=== PATIENT | male | born 1965 | race Caucasian/White ===

== ENCOUNTER 2017-12-03 14:50 | Emergency (ER) | payer SELFPAY ==
[2017-12-03 14:52] VITALS: BP 113/92; PULSE 108; RESP 18; TEMP 36.6; O2SAT 95; BMI 27.0
--- NOTE | 2017-12-03 15:30 | ED.VISSUMM ---
- ER Visit Summary Date of Service: 12/03/17 Chief Complaint: Nausea vomiting diarrhea History of Present Illness: The patient is a 52 M presenting for evaluation secondary nausea vomiting and diarrhea. Patient reports that early Monday morning he woke up and had a sudden onset of loose watery diarrhea, abdominal cramping, as well as nausea and vomiting. Patient reports that he has been vomiting 2-3 times a day pretty much anytime he eats, and has had up to 8 episodes of loose watery diarrhea. Patient reports that he is having abdominal cramping chills and a cough associated with this. He does endorse also having some rhinorrhea. He endorses having sick contacts. Physical Examination: Vital signs notable for heart rate of 108. Well-nourished male no acute distress. Minimal sinus tenderness to percussion noted. Swollen nasal turbinates. Heart was minimally tachycardic and regular. Lungs are clear. Abdomen was nontender with hyperactive bowel sounds. Remainder of physical otherwise unremarkable. Test Results: None indicated Emergency Department Course and Treatment: Patient presented for evaluation secondary to nausea vomiting and diarrhea. He does appear well-hydrated is only mildly tachycardic. I do not believe that IV is indicated. Patient will be treated with Zofran and Imodium and discharged with a course of the same. Disposition: Discharge Impression: 1. Gastroenteritis This note was generated with [employer] dictation software. It may contain incorrect words, spelling, and punctuation that were not noted in review of the chart prior to signing ED Disposition - Plan for ED Patient: Disposition: Home or Assisted Living Chief Complaint: Nausea/Vomiting/Diarrhea Diagnosis: Gastroenteritis Instructions: ED Gastroenteritis Viral Prescriptions: Loperamide [Imodium] 2 mg PO Q2H PRN PRN #10 cap PRN Reason: Diarrhea Ondansetron [Zofran Odt] 4 mg PO Q8H PRN PRN #10 tab PRN Reason: Nausea Referrals: Care Physician,No Primary [Primary Care Provider] -
--- NOTE | 2017-12-03 15:35 | ED.DCSUM_ITS ---
- ER Visit Summary Date of Service: 12/03/17 Chief Complaint: Nausea vomiting diarrhea History of Present Illness: The patient is a 52 M presenting for evaluation secondary nausea vomiting and diarrhea. Patient reports that early Monday morning he woke up and had a sudden onset of loose watery diarrhea, abdominal cramping, as well as nausea and vomiting. Patient reports that he has been vomiting 2-3 times a day pretty much anytime he eats, and has had up to 8 episodes of loose watery diarrhea. Patient reports that he is having abdominal cramping chills and a cough associated with this. He does endorse also having some rhinorrhea. He endorses having sick contacts. Physical Examination: Vital signs notable for heart rate of 108. Well-nourished male no acute distress. Minimal sinus tenderness to percussion noted. Swollen nasal turbinates. Heart was minimally tachycardic and regular. Lungs are clear. Abdomen was nontender with hyperactive bowel sounds. Remainder of physical otherwise unremarkable. Test Results: None indicated Emergency Department Course and Treatment: Patient presented for evaluation secondary to nausea vomiting and diarrhea. He does appear well-hydrated is only mildly tachycardic. I do not believe that IV is indicated. Patient will be treated with Zofran and Imodium and discharged with a course of the same. Disposition: Discharge Impression: 1. Gastroenteritis This note was generated with [employer] dictation software. It may contain incorrect words, spelling, and punctuation that were not noted in review of the chart pr ior to signing ED Disposition - Plan for ED Patient: Disposition: Home or Assisted Living Chief Complaint: Nausea/Vomiting/Diarrhea Diagnosis: Gastroenteritis Instructions: ED Gastroenteritis Viral Prescriptions: Loperamide [Imodium] 2 mg PO Q2H PRN PRN #10 cap PRN Reason: Diarrhea Ondansetron [Zofran Odt] 4 mg PO Q8H PRN PRN #10 tab PRN Reason: Nausea Referrals: Care Physician,No Primary [Primary Care Provider] -
[2017-12-03] MEDS: Loperamide 2 MG Capsule 4 MG PO (15:42)
[2017-12-03 15:43] VITALS: BP 132/85; PULSE 102; RESP 14; O2SAT 97
[2017-12-03] MEDS: Ondansetron ODT 4 MG Tablet PO (15:43)
== END 2017-12-03 15:45 | disposition home or self-care (01) ==
PROVIDERS: Emergency Provider Emergency Medicine
DX: K52.9 Noninfective gastroenteritis and colitis, unspecified (principal); R05 Cough; J34.89 Other specified disorders of nose and nasal sinuses; Z72.0 Tobacco use
CPT/HCPCS: 99283

== ENCOUNTER 2018-03-28 18:15 | Emergency (ER) | payer SELFPAY ==
[2018-03-28 18:16] VITALS: BP 134/87; PULSE 87; RESP 19; TEMP 37.2; O2SAT 96; BMI 28.0
[2018-03-28] MEDS: 0.9% Normal Saline 1,000 ML 1000 ML IV (19:03)
[2018-03-28] MEDS: Dicyclomine 10 MG Capsule 20 MG PO (19:03)
[2018-03-28] MEDS: Ondansetron 4 MG/2 ML Vial IV (19:03)
[2018-03-28 19:16] LABS: Absolute Lymphocyte Count 2.27 X10^3/ul (0.83-4.51); Absolute Neutrophil Count 3.3 X10^3/uL (2.0-7.7); Basophil# 0.01 X10^3/uL; Basophil% 0.2 % (0-1); Eosinophil# 0.21 X10^3/uL; Eosinophils% 3.4 % (0-5); Hematocrit 43.5 % (40-54); Hemoglobin 14.4 g/dl (13.0-16.5); Lymphocyte # 2.27 X10^3/ul (4.0); Lymphocyte % 36.9 % (19-41); Mean Corp Hgb Conc 33.1 g/gl (32-36); Mean Corpuscular Hgb 32.2 pg (27.0-32.0); Mean Corpuscular Volume 97.3 fL (80-94); Monocyte# 0.35 X10^3/uL; Monocyte% 5.7 % (0-10); Neutrophil # 3.29 X10^3/uL (2.7-7.7); Neutrophil % 53.3 % (47-70); Platelet Count 273 K/mm3 (150-450); RBC Distribution Width CV 12.8 % (11.6-14.6); RBC Distribution Width SD 45.2 fl (35.1-43.9); Red Blood Count 4.47 M/mm3 (4.6-6.2); White Blood Count 6.2 K/mm3 (4.4-11.0)
[2018-03-28 19:17] LABS: POSITIVE COUNT NO; POSITIVE DIFFERENTIAL NO; POSITIVE MORPHOLOGY NO
[2018-03-28 19:29] LABS: AST(SGOT) 20 U/L (15-37); Alanine Aminotransfer ALT/SGPT 31 U/L (16-61); Albumin, Serum 3.2 g/dL (3.2-5.0); Alkaline Phosphatase 66 U/L (45-117); Anion Gap 10 (5-15); BUN 15 mg/dL (7-18); BUN/Creat Ratio 13.4 RATIO (10-20); Calcium,Total 7.9 mg/dL (8.5-10.1); Chloride 110 mmol/L (98-107); Creatinine, Serum 1.12 mg/dL (0.70-1.30); EST Glomerular Filtration Rate 73 mL/min (>60); Est Glom Filt Rate - Afr Amer 89 mL/min (>60); Estimated Creatinine Clearance 78.03 ml/min; Globulin 3.1 g/dL (2.2-4.2); Glucose 105 mg/dL (74-106); Lipase 157 U/L (73-393); Protein, Total 6.3 g/dL (6.4-8.2); Sodium Level 145 mmol/L (136-145)
[2018-03-28 19:42] LABS: Lactic Acid 0.5 mmol/L (0.4-2.0)
--- NOTE | 2018-03-28 20:36 | ED.VISSUMM ---
- ER Visit Summary Date of Service: 03/28/18 Chief Complaint: [Diarrhea and abdominal pain] History of Present Illness: The patient is a 53 M [presents the emergency department 2-day history of diarrhea. Patient states that multiple people at work and had similar issues. Patient describes intermittent abdominal cramping in the upper abdomen. Patient denies any fevers. He denies any vomiting. Patient denies any blood in his stool or black tarry stools. Patient's been having 6-7 episodes of diarrhea per day that has been watery. Patient is not had a bowel movement since this morning however.] Patient denies any recent travel or antibiotic usage. Physical Examination: HEENT-PERRLA, EOMI. Cranial nerves II through XII grossly intact. TMs clear. Mucous membranes moist. No adenopathy. Cardiovascular-regular rate and rhythm without murmur or ectopy Lungs-clear to auscultation, chest wall stable without crepitus or subcu emphysema Abdomen-normoactive bowel sounds, soft, nontender, no rebound or rigidity, no peritoneal signs. Extremities-intact ?4, normal range of motion, normal pulses, atraumatic [] Test Results: [CBC with differential obtained showed a normal white blood cell count. Chemistries were unremarkable. LFTs were normal and lipase was normal.] Emergency Department Course and Treatment: [I ordered stool for enteric pathogens however patient was unable to provide a sample.] Patient was given a dose of Bentyl he had no further abdominal pain or cramping. Treatment Plan: [Patient was given a prescription for Bentyl. Patient is asking to return to work.] Disposition: [Discharged home in stable condition] Impression: [Diarrhea-suspect viral etiology] This note was generated with [employer] dictation software. It may contain incorrect words, spelling, and punctuation that were not noted in review of the chart prior to signing ED Disposition - Plan for ED Patient: Referrals: Care Physician,No Primary [Primary Care Provider] -
--- NOTE | 2018-03-28 20:38 | ED.DEP ---
ED Disposition - Plan for ED Patient: Instructions: ED Gastroenteritis Viral Prescriptions: Dicyclomine HCl [Bentyl] 20 mg PO TIDAC #20 cap Referrals: Care Physician,No Primary [Primary Care Provider] - Rosa Elena Harvey DO [STAFF PHYSICIAN] - 3-5 Days
[2018-03-28 20:46] VITALS: BP 128/78; PULSE 73; RESP 20; O2SAT 97
== END 2018-03-28 20:46 | disposition home or self-care (01) ==
PROVIDERS: Emergency Provider Emergency Medicine
DX: A08.4 Viral intestinal infection, unspecified (principal); R10.10 Upper abdominal pain, unspecified; R19.7 Diarrhea, unspecified; Z72.0 Tobacco use
CPT/HCPCS: 80053; 83605; 83690; 85025; 96361; 96374; 99284; J7030; A4216; J2405

== ENCOUNTER 2018-05-09 20:03 | Emergency (ER) | payer SELFPAY ==
[2018-05-09 20:03] VITALS: BP 132/83; PULSE 96; RESP 18; TEMP 36.8; O2SAT 97; BMI 27.3
--- NOTE | 2018-05-09 20:45 | CT_ITS ---
STUDY: CT BRAIN WITHOUT CONTRAST REASON FOR EXAM: Male, 53 years old. Difficulty hearing RADIATION DOSAGE (If Supplied By Facility): CTDIvol = ( 44.99 ) mGy, DLP = ( 812.98 ) mGycm TECHNIQUE: Transaxial CT imaging of the brain was performed without administration of intravenous contrast material. Individualized dose optimization techniques were used for this CT. COMPARISON: No relevant priors. FINDINGS: Normal soft tissue structures. Normal calvarium. Normal size ventricles and extra-axial spaces for the patient's age. Normal white matter tracts of the cerebral hemispheres. Normal basal ganglia and thalami. Normal brainstem. Normal cerebellum. There is no intracranial hemorrhage. There are no findings of an acute ischemic infarction. Mild paranasal sinus mucosal thickening. CT/Brain/Head without Contrast IMPRESSION: No acute intracranial pathology of the brain. Electronically Signed: Hi Youngblood DO at 21:35 EDT Tel [phone], Service support ,
--- NOTE | 2018-05-09 21:49 | ED.VISSUMM ---
- ER Visit Summary Date of Service: 05/09/18 Chief Complaint: Hearing loss, headache History of Present Illness: The patient is a 53 M reports hearing loss for the past week. No injuries or trauma. Headache since then. Also complains of intermittent dizzy vertigo sensations. 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 He does use Q-tips. No nausea or vomiting. No vision changes. Physical Examination: General: Alert and oriented ?3, no acute distress. Hard of hearing HEENT: Normocephalic, atraumatic. Moist mucosa membranes. TMs were normal. No cerumen impaction. Neck: supple, nontender. Cardiovascular: Regular rate and rhythm, no murmurs Respiratory: Normal breath sounds, symmetric, no distress Abdomen: Soft, nontender, nondistended Extremities: Nontender, no edema, pulses intact ?4 Neuro: no focal neurological deficits. Test Results: CT head negative Emergency Department Course and Treatment: Patient prior complaints of hearing loss and dizzy sensations. Complains of headache. Head CT was negative. No cerumen impaction noted. With hearing loss will give follow-up with ENT for outpatient testing. Will give prescription for Antivert to use for dizziness as needed. Signs and symptoms discussed return. All questions were answered. Treatment Plan: [] Disposition: Discharge Impression: 1. Hearing loss 2. Dizziness 3. Cephalgia This note was generated with [employer] dictation software. It may contain incorrect words, spelling, and punctuation that were not noted in review of the chart prior to signing ED Disposition - Plan for ED Patient: Disposition: Home or Assisted Living Diagnosis: Hearing loss, Dizziness, Cephalgia Instructions: Understanding Hearing Loss, ED Cephalgia Unspecified, ED Dizziness [facility]O Prescriptions: Meclizine HCl [Antivert] 25 mg PO 4X/DAY PRN PRN #20 tablet PRN Reason: Dizziness Referrals: Care Physician,No Primary [Primary Care Provider] - Juanjo Sebastian MD [STAFF PHYSICIAN] - 3-5 Days
--- NOTE | 2018-05-09 21:52 | ED.DCSUM_ITS ---
- ER Visit Summary Date of Service: 05/09/18 Chief Complaint: Hearing loss, headache History of Present Illness: The patient is a 53 M reports hearing loss for the past week. No injuries or trauma. Headache since then. Also complains of intermittent dizzy vertigo sensations. 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 He does use Q-tips. No nausea or vomiting. No vision changes. Physical Examination: General: Alert and oriented ?3, no acute distress. Hard o f hearing HEENT: Normocephalic, atraumatic. Moist mucosa membranes. TMs were normal. No cerumen impaction. Neck: supple, nontender. Cardiovascular: Regular rate and rhythm, no murmurs Respiratory: Normal breath sounds, symmetric, no distress Abdomen: Soft, nontender, nondistended Extremities: Nontender, no edema, pulses intact ?4 Neuro: no focal neurological deficits. Test Results: CT head negative Emergency Department Course and Treatment: Patient prior complaints of hearing loss and dizzy sensations. Complains of headache. Head CT was negative. No cerumen impaction noted. With hearing loss will give follow-up with ENT for outpatient testing. Will give prescription for Antivert to use for dizziness as needed. Signs and symptoms discussed return. All questions were answered. Treatment Plan: [] Disposition: Discharge Impression: 1. Hearing loss 2. Dizziness 3. Cephalgia This note was generated with [employer] dictation software. It may contain incorrect words, spelling, and punctuation that were not noted in review of the chart prior to signing ED Disposition - Plan for ED Patient: Disposition: Home or Assisted Living Diagnosis: Hearing loss, Dizziness, Cephalgia Instructions: Understanding Hearing Loss, ED Cephalgia Unspecified, ED Dizziness UKO Prescriptions: Meclizine HCl [Antivert] 25 mg PO 4X/DAY PRN PRN #20 tablet PRN Reason: Dizziness Referrals: Care Physician,No Primary [Primary Care Provider] - Juanjo Sebastian MD [STAFF PHYSICIAN] - 3-5 Days
== END 2018-05-09 21:57 | disposition home or self-care (01) ==
PROVIDERS: Emergency Provider Emergency Medicine
DX: H91.90 Unspecified hearing loss, unspecified ear (principal); R42 Dizziness and giddiness; R51 Headache
CPT/HCPCS: 70450; 99281

== ENCOUNTER 2018-06-07 20:55 | Emergency (ER) | payer SELFPAY ==
[2018-06-07 20:56] VITALS: BP 155/78; PULSE 99; RESP 16; TEMP 36.3; O2SAT 96; BMI 23.5
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
[2018-06-07 22:08] VITALS: BP 142/60; PULSE 98; RESP 18; O2SAT 96
== END 2018-06-07 22:08 | disposition home or self-care (01) ==
PROVIDERS: Emergency Provider Emergency Medicine
DX: S70.11XA Contusion of right thigh, initial encounter (principal); V03.90XA Pedestrian on foot injured in collision with car, pick-up truck or van, unspecified whether traffic or nontraffic accident, initial encounter; Y93.9 Activity, unspecified; Y92.9 Unspecified place or not applicable; F17.200 Nicotine dependence, unspecified, uncomplicated
CPT/HCPCS: 99282

== ENCOUNTER 2018-10-29 09:55 | Inpatient (IN) | payer MEDICARE, SELFPAY ==
[2018-10-29] VITALS (8 sets, daily range): BP systolic 113–135; BP diastolic 82–98; PULSE 65–94; RESP 16–18; TEMP 36.3–36.7; O2SAT 96–100; BMI 24.7; BMI 25.1
--- NOTE | 2018-10-29 10:20 | ED.RN ---
RT HAND RED, SWOLLEN, AND PAINFUL. LIMITED MOVEMENT.
--- NOTE | 2018-10-29 10:40 | NURSING ---
DR AFSHIN MAJANO
[2018-10-29 10:42] LABS: Absolute Lymphocyte Count 1.44 X10^3/uL (0.83-4.51); Absolute Neutrophil Count 4.7 X10^3/uL (2.0-7.7); Basophil# 0.02 X10^3/uL; Basophil% 0.3 % (0-1); Eosinophil# 0.27 X10^3/uL; Eosinophils% 3.8 % (0-5); Hemoglobin 14.3 g/dL (13.0-16.5); Lymphocyte # 1.44 X10^3/ul (4.0); Lymphocyte % 20.3 % (19-41); Mean Corp Hgb Conc 33.3 g/dL (32-36); Mean Corpuscular Hgb 32.1 pg (27.0-32.0); Mean Corpuscular Volume 96.6 fL (80-94); Monocyte# 0.64 X10^3/uL; NRBC Flagged by Analyzer 0 % (0-5); Neutrophil # 4.69 X10^3/uL (2.7-7.7); Neutrophil % 66.2 % (47-70); Platelet Count 252 K/mm3 (150-450); RBC Distribution Width CV 13.1 % (11.6-14.6); Red Blood Count 4.45 M/mm3 (4.6-6.2); White Blood Count 7.1 K/mm3 (4.4-11.0)
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
[2018-10-29 10:56] LABS: Anion Gap 5 (5-15); BUN 17 mg/dL (7-18); BUN/Creat Ratio 15.7 RATIO (10-20); Calcium,Total 8.7 mg/dL (8.5-10.1); Chloride 104 mmol/L (98-107); Creatinine, Serum 1.08 mg/dL (0.70-1.30); EST Glomerular Filtration Rate 76 mL/min (>60); Est Glom Filt Rate - Afr Amer 92 mL/min (>60); Estimated Creatinine Clearance 80.92 ml/min; Glucose 90 mg/dL (74-106); Potassium 4.6 mmol/L (3.5-5.1); Sodium Level 136 mmol/L (136-145)
[2018-10-29] MEDS: 0.9% Normal Saline 1,000 ML 250 ML IV (11:05)
[2018-10-29] MEDS: Morphine 4 MG/ML Syringe IV ×2 (11:08→12:04)
[2018-10-29] MEDS: Ondansetron 4 MG/2 ML Vial IV (11:08)
--- NOTE | 2018-10-29 11:15 | NURSING ---
DR PEPE FOR DR JOSHUA
--- NOTE | 2018-10-29 11:19 | NURSING ---
DR MISA MAJANO
--- NOTE | 2018-10-29 11:23 | RAD_ITS ---
STUDY: X-RAY - RIGHT HAND, ATTENTION RIGHT THUMB. REASON FOR EXAM: Male, 53 years old. Injury to the thumb. TECHNIQUE: 3 view(s) of the finger were obtained. COMPARISON: None. FINDINGS: Normal metacarpal head. There is mild degenerative arthrosis of the metacarpophalangeal joint. Normal proximal phalanx. N ormal distal phalanx. Normal proximal interphalangeal joint. Normal distal interphalangeal joint. RAD/Finger(s) Min 2 Views IMPRESSION: No acute abnormality is seen. Electronically Signed: Billy Gonzalez, at 12:20 EDT , Service support ,
--- NOTE | 2018-10-29 11:27 | NURSING ---
DR BYNUM FOR DR JOSHUA
--- NOTE | 2018-10-29 11:43 | NURSING ---
MED SURG SLABY FLEXOR TENOSYNOVITIS RT THUMB
--- NOTE | 2018-10-29 13:01 | HP.PCM_ITS ---
History of Present Illness Date of Admission: 10/29/18 Chief Complaint: Fish hook injury to volar aspect right thumb with infection and tenosynovitis. Patient is a 53-year-old hcuwp-vamg-myyzhqoj male who presents with pain, swelling and discoloration of his right thumb status post puncture wound from a fish hook yesterday. The puncture wound is near the IP joint of the right thumb. He reports increasing redness and pain and swelling since yesterday. He denies fever, chills or night sweats. He came to the ED and was started on IV Clindamycin. X-ray showed no fracture and no foreign body. It was recommended for the patient to be admitted for continued IV antibiotics and urgent operative intervention for incision and drainage and excisional debridement of his worsening infection right thumb. Patient is right hand dominant. Past Medical History Past Medical History (Chronic Problems): Chronic Problems Smoker (Chronic) Allergies No Known Allergies Allergy (Verified 10/29/18 09:56) Home Medications: Ambulatory Orders Medication Instructions Recorded NK 06/07/18 Surgical History: no surgical history Lives: Alone Smoking Status: Current every day smoker Alcohol: None Drugs: None Review of Systems Constitutional: Denies: Chills, Fever Eyes: Denies: Pain HEENT: Denies: Nasal Congestion, Sore Throat Cardiovascular: Denies: Chest Pain Respiratory: Reports: Cough, Shortness of Breath, - - patient is a smoker. Gastrointestinal: Denies: Constipation, Diarrhea, Nausea, Vomiting Genitourinary: Denies: Frequency, Hematuria Musculoskeletal: Reports: Hand Pain - right thumb pain with increasing redness and swelling and pain after a fish hook injury.. Denies: Back Pain, Leg Pain, Neck Pain Skin: Reports: Wounds - puncture wound volar surface right thumb at IP joint. Neurological: Denies: Headaches Psychiatric: Denies: Anxiety, Depression Endocrine: Denies: Polydipsia, Polyuria Hematologic/ Lymphatic: Denies: Easy Bruising, Hx of blood clot VTE Information - Inpt Only VTE Present on Admission: No VTE Mechan Device Prophylaxis: SCD's VTE Pharm Prophylaxis ordered?: No Patient Problems: Active and Suspected Problems Abscess of right thumb (Acute) Puncture wound of right thumb (Acute) Fish hook injury of right thumb (Acute) Flexor tenosynovitis of thumb (Acute) - Physical Exam General: Alert, Oriented x3 HEENT: PERRLA, EOMI Oral: Moist Mucosa Neck: Supple Lungs: Clear to auscultation Cardiovascular: Regular rate Abdomen: Soft, Non-Distended Extremities: No clubbing, No cyanosis, Edema - mild e4ema right thumb., Peripheral Pulses Normal, Tenderness - right thumb., - - patient is right hand dominant. Skin: Ulcer/ Wound - puncture wound volar surface right thumb at IP joint. Surrounding redness and swelling and tenderness. Lymphatic: - - no axillary adenopathy. Neurological: Cranial nerves II-XII grossly intact Psych/Mental Status: Normal Affect, Appropriate Vital Signs Temp Pulse Resp BP Pulse Ox 98.1 F 77 16 134/84 H 99 10/29/18 12:45 10/29/18 12:45 10/29/18 12:45 10/29/18 12:45 10/29/18 12:45 Oxygen Delivery Method Room Air Weight: 170 lb 3.15 oz Body Mass Index (BMI) 25.1 Intake and Output for Last 24 Hours 10/27/18 10/28/18 10/29/18 23:59 23:59 23:59 Intake Total 54 / 54 Balance 54 / 54 Laboratory Tests Past 24 Hrs 10/29/18 10/29/18 10:35 10:35 WBC 7.1 RBC 4.45 L Hgb 14.3 Hct 43.0 MCV 96.6 H MCH 32.1 H MCHC 33.3 RDW Std Deviation 47.0 H RDW Coeff of Desiree 13.1 Plt Count 252 MPV 10.0 Immature Gran % (Auto) 0.400 Neut % (Auto) 66.2 Lymph % (Auto) 20.3 Thurston % (Auto) 9.0 Eos % (Auto) 3.8 Baso % (Auto) 0.3 Absolute Neuts (auto) 4.7 Absolute Lymphs (auto) 1.44 Nucleated RBC % 0 Sodium 136 Potassium 4.6 Chloride 104 Carbon Dioxide 27.0 Anion Gap 5 BUN 17 Creatinine 1.08 Estim Creat Clear Calc 80.92 Est GFR (MDRD) Af Amer 92 Est GFR (MDRD) Non-Af 76 BUN/Creatinine Ratio 15.7 Glucose 90 Calcium 8.7 Diagnostic Data Finger X-Ray 10/29/18 11:23 IMPRESSION: No acute abnormality is seen. Electronically Signed: Billy Gonzalez, at 12:20 EDT , Service support , Assessment/Plan All Active Problems Abscess of right thumb (Acute) Puncture wound of right thumb (Acute) Fish hook injury of right thumb (Acute) No significant past medical history (Acute) Flexor tenosynovitis of thumb (Acute) 1. Puncture wound infection volar surface right thumb at IP joint. 2. Flexor tenosynovitis. 3. Fish hook injury. 4. Smoker. X-ray reviewed. No fracture was seen. No foreign body seen. Due to the mechanism of injury with a fish hook from dirty pond water, recommend urgent operative intervention today to minimize further extension of the infection and the risk of tissue necrosis. Surgery will be done under general anesthesia and tourniquet control. His symptoms have dramatically worsened in the last 24 hours. Patient will need incision and drainage and excisional debridement with extension of the area of infection both proximally and distally in a zig zag fashion. Anticipate involvement of the underlying flexor tendon sheath that will necessitate incision and drainage of the tendon sheath. The wounds will be left open and packed with Betadine gauze today. Tomorrow will start Aquacel Silver dressing changes daily. A thumb spica splint will be applied in the OR. He will be discharged in a day or two once he is tolerating po analgesia with the dressing changes. Will set him up with OT after discharge for a silastic splint and range of motion exercises, strengthening, and edema management. Patient was informed of the risks and complications of the procedure including alternatives to surgery. These were discussed with the patient personally. Patient voices understanding and wishes to proceed. Some of the risks and complications that were discussed included but were not i nclusive of failure to diagnose including symptom relief, pain, infection, numbness, stiffness, loss of digit, RSD (CRPS), need for further surgery, contracture, and wound healing problems. Encouraged patient to stop smoking as it may have deleterious effects on wound healing. Code Visit Inpatient E&M: 92645 Init Hosp L3 - -57 Modifier ICD-10 - S69.91xA, S61.031A, L02.511, M65.9, F17.200
--- NOTE | 2018-10-29 13:19 | NURSING ---
report given to jacque ODEN in ac
[2018-10-29] MEDS: Lactated Ringers 1,000 ML 100 ML IV (13:49)
--- NOTE | 2018-10-29 14:15 | TISS_PTH ---
PATIENT: DIDIER TRAN LOC: [facility] U#:[id number] AGE/SX: 53/M ROOM: TX325 RE10/29/[address]: Dr. Ellis Tejada MD : [id number] BED: 1 DIS: 10/31/2018 SPEC #: [id number] RECD: 10/29/18 15:52 STATUS: EDGARDO RETerry #: [id number] SULEIMAN: 10/29/18 14:[address]: Ellis Tejada DEPT: SURGICAL PATHOLOGY RECD BY: Nabeel Carter ENTERED: 10/30/18 13:23 SP TYPE: Tissue Bx OTHR DR: Ally Primary Care Phys Tissues: Thumb, NOS Procedures: Special Stain Group I Surgery Specimen Level IV GMS Stain (control) HEADER OPERATION: Incision and drainage thumb abscess PRE-OP DIAGNOSIS: Flexor tenosynovitis of thumb TISSUE SUBMITTED: Right thumb infection MICROSCOPIC DIAGNOSIS Skin and soft tissue, right thumb, excision: Acute inflammation consistent with abscess formation. Hyperkeratosis and reactive acanthosis of skin. Negative for fungal organisms. See comment. AM:monica 10/31/18 COMMENT GMS stain with matched control supports the above diagnosis. MICROSCOPIC DESCRIPTION Slides are reviewed. GROSS DESCRIPTION Received in fixative is one container labeled with the patient's name and designated thumb infection. The specimen consists of three irregular fragments of yellow-saenz soft tissue ranging in size from 0.7 to 1.2 cm. The largest fragment contains a fragment of unremarkable skin measuring 1.1 x 0.7 cm. The largest fragment contains a fragment of unremarkable skin measuring 1.1 x 0.7 cm. The largest fragment is inked, bisected and totally submitted along with the smaller fragments in one cassette. / AM:monica 10/30/18 TC:2 CPT: 16976, 29760
[2018-10-29] MEDS: Piperacil/Tazobactam 4.5 GM in NS100 MBP IV (14:46)
[2018-10-29] MEDS: Vancomycin IV 1,000 MG/200 ML BAG 200 MG IV (14:56)
--- NOTE | 2018-10-29 15:54 | PCM.OPRPT ---
Report of Operation Date of Procedure: 10/29/18 Pre-Operative Diagnosis: 1. Puncture wound infection volar surface right thumb at IP joint. 2. Flexor tenosynovitis. 3. Fish hook injury. 4. Smoker. Post-Operative Diagnosis: Same. Surgery/Procedure Performed:: 1. Surgical preparation right thumb with incision and drainage and excisional debridement necrotizing infection abscess. 2. Incision and drainage tendon sheath for flexor tenosynovitis. Description of Surgical Findings:: Patient is a 53-year-old tstwu-khjc-zqwuagsa male who presents with pain, swelling and discoloration of his right thumb status post puncture wound from a fish hook yesterday. The puncture wound is near the IP joint of the right thumb. He reports increasing redness and pain and swelling since yesterday. He denies fever, chills or night sweats. He came to the ED and was started on IV Clindamycin. X-ray showed no fracture and no foreign body. It was recommended for the patient to be admitted for continued IV antibiotics and urgent operative intervention for incision and drainage and excisional debridement of his worsening infection right thumb. His antibiotics were broadened to Vancomycin and Zosyn. Patient was informed of the risks and complications of the procedure including alternatives to surgery. These were discussed with the patient personally. Patient voices understanding and wishes to proceed. Some of the risks and complications that were discussed included but were not inclusive of failure to diagnose including symptom relief, pain, infection, numbness, stiffness, loss of digit, RSD (CRPS), need for further surgery, contracture, and wound healing problems. Encouraged patient to stop smoking as it may have deleterious effects on wound healing. Total tourniquet time - 52 minutes. Size of defect volar surface right thumb - 1.5 x 1 cm. Length of defect volar surface right thumb extending onto thenar eminence - 6.5 cm (3 separate wounds measuring from proximal to distal - 2 cm, 3 cm, and 1.5 cm. tactical deception plans officer: None Type of Anesthesia:: General Specimen's removed: 1. Right thumb infection tissue to Pathology and Microbiology. 2. MRSA Wound DNA by PCR. Drains: None. Estimated Blood Loss (mL): 5 ml. Description of Procedure: Patient was taken to OR in supine position and was placed under general anesthesia. The right hand was prepped and draped in the usual fashion. SCD's were placed for DVT prophylaxis. Perioperative antibiotics were given intravenously. Using xylocaine with epinephrine, the right thumb was infiltrated with a digital metacarpal block for postoperative pain relief. After waiting 5 minutes for the anesthetic to take effect, the right hand was elevated and squeezed manually with my hands. I didn't want to use an Esmarch bandage due to the concern of spreading the infection. An initial incision and drainage was made in a circular fashion around the area of the puncture wound of the fish hook. Some pus was seen in the subcutaneous tissue. A lot of fat necrosis was present extending to the flexor tendon sheath. I then made proximal and distal incisions in a zig zag fashion for exposure to evaluate the full extent of the infection. The skin flaps were elevated at the level of the tendon sheath. The area was quite swollen. Care was taken to identify the radial digital nerve and ulnar digital nerve to the right thumb, and the nerves were preserved. When I reached the flexor tendon sheath, it was quite inflamed and tense. No pus was seen in the tendon sheath. A lot of inflammatory exudate was present. Incision was made distally at the IP joint and proximally at the crease to allow exposure to the flexor tendon. An IV catheter was placed in the flexor tendon sheath both proximally and distally and copiously irrigated with saline until the drainage was clear without any further evidence of exudate. I also dissected onto the thenar eminence to evaluate the muscles. Both the abductor pollicis brevis and the flexor pollicis brevis were soft and viable without evidence of compartment syndrome or muscle compromise. The palmar sensory branch of the median nerve was seen and preserved. After irrigation of the flexor tendon sheath, I also irrigated the subcutaneous area with saline. About 850 ml of saline was used for irrigation. Some of the tissue that was excised and debrided was sent to Pathology for analysis and to Microbiology for culture. A positive culture will necessitate antibiotic therapy. MRSA Wound DNA by PCR was also done. I then loosely closed the zigs and the zags with 5-0 Nylon vertical mattress interrupted sutures. There was the central wound at the the level of the IP joint where the fish hook injury occurred and it measures 1.5 x 1 cm. The distal wound measured 1.5 cm in length. There were two proximal wounds measuring 3 cm and 2 cm respectively. I dressed the wounds with Mepitel nonadherent dressing and Betadine gauze followed by 4x4 gauze and Kerlix gauze followed by a plaster thumb spica splint followed by a compression jorge luis wrap. Prior to dressing the wounds, the tourniquet was released after 52 minutes. Hemostasis was obtained with electrocautery and compression. Patient tolerated the procedure well and was sent to PACU in satisfactory condition. Patient will be sent upstairs for continued postop care. Anticipate the need for IV analgesia for the first dressing change. Will change to a Silver dressing tomorrow. Will discharge him home when tolerating po analgesia with the dressing changes. After discharge, will set him up with OT for a silastic splint and range of motion exercises, strengthening, and edema management. He will keep his right hand elevated during the initial postoperative period. Sutures will be removed in 2-3 weeks. Grafts/Implants Used: None. - Complications None. - Admit VTE Documentation VTE Present on Admission: No VTE Mechan Device Prophylaxis: SCD's VTE Pharm Prophylaxis ordered?: No Code Visit Surgery Charges CPT - 89204 ICD-10 - S61.031A, S69.91xA, L02.511, M65.9, F17.200 82142 L02.511, S69.91xA, S61.031A, M65.9, F17.200 80616 M65.9, S69.91xA, L02.511, S61.031A, F17.200
--- NOTE | 2018-10-29 16:41 | PCM.RX.CS ---
Consult Pharmacy has been consulted to manage selected antiobiotic: Vancomycin Type of Consult: New start Suspected Infection: Skin/Soft tissue Prior Doses of Antibiotics Received/Current Regimen: Vancomycin 1000mg IV x1 pre-op Labs: Sodium 136 mmol/L (136-145) 10/29/18 10:35 Potassium 4.6 mmol/L (3.5-5.1) 10/29/18 10:35 Chloride 104 mmol/L (98-107) 10/29/18 10:35 Carbon Dioxide 27.0 mmol/L (21.0-32.0) 10/29/18 10:35 Anion Gap 5 (5-15) 10/29/18 10:35 BUN 17 mg/dL (7-18) 10/29/18 10:35 Creatinine 1.08 mg/dL (0.70-1.30) 10/29/18 10:35 Est GFR (MDRD) Af Amer 92 mL/min (>60) 10/29/18 10:35 Est GFR (MDRD) Non-Af 76 mL/min (>60) 10/29/18 10:35 BUN/Creatinine Ratio 15.7 RATIO (10-20) 10/29/18 10:35 Glucose 90 mg/dL (74-106) 10/29/18 10:35 Weight used for dosin kg Estimated Creatinine Clearance: 81ml/min Goal Trough: 10-15 mcg/mL Pharmacy Plan for Drug Dosing: Pt received a 1000mg dose of Vancomycin pre-op on 10/29/18 at 1456. Ordered goal trough for the pt is moderate or 10-15. Initial recommendation is for the pt to receive Vancomycin 1000mg IV q12h, starting 12h after the pre-op dose. Initial recommendation dose was based off of weight and crcl. Trough will be checked 10/31/18 at 0230. Pharmacy Service will continue to monitor and adjust dosing as required. Follow-Up Labs: Trough Vancomycin - 10/31/18 at 0230
[2018-10-29] MEDS: HYDROmorphone 1 MG/ML Syringe IV (17:02)
[2018-10-29 17:38] LABS: M R Staph aureus DNA By PCR Negative (Negative); Probe Check PASS; Specimen Processing Control PASS; Staph aureus DNA By PCR NEGATIVE (Negative)
[2018-10-29] MEDS: Gabapentin 300 MG Capsule PO (18:13)
--- NOTE | 2018-10-29 18:40 | NURSING ---
right hand is warm, cap refill wnl, pt able to move fingers/thumb is splinted along with hard splint on underside of arm from below elbow through thumb
[2018-10-29] MEDS: HYDROmorphone 2 MG TABLET PO ×2 (18:44→21:52)
[2018-10-29] MEDS: Docusate Sodium 100 MG Capsule PO (21:51)
[2018-10-30] MEDS: Ondansetron 4 MG/2 ML Vial IV ×2 (01:00→08:26)
[2018-10-30] MEDS: 0.9% NaCl IVPB Med Flush (250 mL) 15 ML IV (01:00)
[2018-10-30] MEDS: Lactated Ringers 1,000 ML 100 ML IV (01:02)
[2018-10-30 02:14] VITALS: BP 136/88; PULSE 72; RESP 16; TEMP 36.7; O2SAT 97
[2018-10-30] MEDS: Vancomycin IV 1,000 MG/200 ML BAG 200 MG IV ×2 (02:57→17:10)
[2018-10-30] MEDS: HYDROmorphone 1 MG/ML Syringe IV ×2 (06:09→12:41)
[2018-10-30 06:22] LABS: Hematocrit 38.6 % (40-54); Hemoglobin 12.7 g/dL (13.0-16.5); Mean Corp Hgb Conc 32.9 g/dL (32-36); Mean Corpuscular Hgb 32.2 pg (27.0-32.0); Mean Corpuscular Volume 97.7 fL (80-94); Mean Platelet Vol. 10.1 fl (6.2-12.0); Platelet Count 225 K/mm3 (150-450); RBC Distribution Width CV 13.1 % (11.6-14.6); RBC Distribution Width SD 47.2 fl (35.1-43.9); Red Blood Count 3.95 M/mm3 (4.6-6.2); White Blood Count 5.2 K/mm3 (4.4-11.0)
[2018-10-30 06:24] LABS: Erythrocyte Sedimentation Rate 18 mm/hr (0-20)
[2018-10-30 06:40] LABS: ALB/GLOB Ratio 0.9 RATIO (0.9-2.4); AST(SGOT) 28 U/L (15-37); Alanine Aminotransfer ALT/SGPT 32 U/L (16-61); Albumin, Serum 2.8 g/dL (3.2-5.0); Alkaline Phosphatase 50 U/L (45-117); Anion Gap 7 (5-15); BUN 11 mg/dL (7-18); BUN/Creat Ratio 10.3 RATIO (10-20); CRP 8.78 mg/L (0.0-3.0); Calcium,Total 7.7 mg/dL (8.5-10.1); Chloride 105 mmol/L (98-107); Creatinine, Serum 1.07 mg/dL (0.70-1.30); EST Glomerular Filtration Rate 77 mL/min (>60); Est Glom Filt Rate - Afr Amer 93 mL/min (>60); Estimated Creatinine Clearance 81.68 ml/min; Globulin 3.2 g/dL (2.2-4.2); Glucose 123 mg/dL (74-106); Potassium 4.2 mmol/L (3.5-5.1); Sodium Level 138 mmol/L (136-145)
[2018-10-30] MEDS: Gabapentin 300 MG Capsule PO ×2 (08:15→17:10)
[2018-10-30 08:29] VITALS: BP 127/96; PULSE 72; RESP 18; TEMP 36.7; O2SAT 95
[2018-10-30] MEDS: 0.9% NaCl Peripheral Flush Adult/Peds IV ×3 (08:29→13:58)
--- NOTE | 2018-10-30 10:15 | CASEMGMT ---
CECILLE YOUNGER Face to Face with patient for initial transition planning/care coordination assessment. RN AREN introduced self and role at [facility]. Patient lying in bed, alert and oriented. Patient willing to participate in assessment and is able to answer all questions appropriately. Care providers, pharmacy, and demographics verified. Patient wishes to discharge home, with possible HHC. RN AREN discussed need for family or friend to learn dressing changes as HHC will not come everyday. Patient is listed as self pay but patient states he has [employer]. JC GregoryRosina Parr updated regarding self pay status. Patient states he has no further needs or concerns at this time. CM to follow for discharge planning needs that may arise. PCP: None, CECILLE YOUNGER to provide list of PCP for patient to establish with. Specialists: [facility] Preferred Pharmacy: [facility] Insurance: Self pay, patient states he has [employer] but does not have cards Prescription Benefit: Living Will/HPOA: none LNOK: Friend ED Living Arrangements: Patient lives with friend in single story house, patient is independent Transportation: Friends DME/HHC: Denies any DME or HHC Disposition Plan: Patient to discharge home with support of friends and follow-up plans in place. Will monitor for need for HHC pending insurance verification. Krystyna CERRATO, RN, CM
--- NOTE | 2018-10-30 11:32 | CASEMGMT ---
Social Work Pt is listed as self pay. PFS documenting pt does not have Medicaid. JC met with pt and inquired about medical insurance. Pt very insistent that he has caresource. JC called Alicia Reyes at [facility] who states pt does not have coverage. Pt applied in August but failed to provide needed information and case was closed. SW informed pt of this and pt does not believe SW, insisting he does have caresource. JC placed call to Emeli at [facility]. Emeli checked system and states pt does not have [employer]. Per Emeli, Pt had [place] Medicaid but last day of coverage was 12/06/2005. No record of ever having coverage with [facility]. JC attempted to see pt multiple times and pt receiving care. JC will follow up. ASHLEY Cerna
--- NOTE | 2018-10-30 13:07 | PCM.PN.SRG ---
Patient Problems: Active and Suspected Problems Abscess of right thumb (Acute) Puncture wound of right thumb (Acute) Fish hook injury of right thumb (Acute) Flexor tenosynovitis of thumb (Acute) Subjective: Postop #1 Patient has complaints of wound pain. Dressing change with aquacel silver was difficult today secondary to increased pain. - Physical Exam General: Alert, Oriented x3 HEENT: PERRLA, EOMI Oral: Moist Mucosa Neck: Supple Abdomen: Soft, Non-Distended Extremities: Edema - mild edema right hand., Peripheral Pulses Normal Skin: Ulcer/ Wound - right thumb wound is stable. No further evidence of infection noted. Swelling slowly resolving. Redness is less. Tenderness little better. Silver dressing change was painful and needed IV analgesia. Lymphatic: - - no axillary adenopathy. Neurological: Cranial nerves II-XII grossly intact Psych/Mental Status: Normal Affect, Appropriate Vital Signs Temp Pulse Resp BP Pulse Ox 98.0 F 72 18 127/96 H 95 10/30/18 08:29 10/30/18 08:29 10/30/18 08:29 10/30/18 08:29 10/30/18 08:29 Oxygen Delivery Method Room Air Weight: 170 lb 3.15 oz Body Mass Index (BMI) 25.1 Intake and Output for Last 24 Hours 10/28/18 10/29/18 10/30/18 23:59 23:59 23:59 Intake Total 2954 / 2954 883.59 / 883.59 Balance 2954 / 2954 883.59 / 883.59 Microbiology Past 72 Hours 10/29/18 15:56 Gram Stain - Final Wound - Right Hand Wound Culture - Preliminary Gram negative lucero Laboratory Tests Past 24 Hrs 10/29/18 10/30/18 10/30/18 15:56 06:06 06:06 WBC 5.2 RBC 3.95 L Hgb 12.7 L Hct 38.6 L MCV 97.7 H MCH 32.2 H MCHC 32.9 RDW Std Deviation 47.2 H RDW Coeff of Desiree 13.1 Plt Count 225 MPV 10.1 ESR 18 Sodium 138 Potassium 4.2 Chloride 105 Carbon Dioxide 26.0 Anion Gap 7 BUN 11 Creatinine 1.07 Estim Creat Clear Calc 81.68 Est GFR (MDRD) Af Amer 93 Est GFR (MDRD) Non-Af 77 BUN/Creatinine Ratio 10.3 Glucose 123 H Calcium 7.7 L Total Bilirubin 0.40 AST 28 ALT 32 Alkaline Phosphatase 50 C-React Prot Ext Range 8.78 H Total Protein 6.0 L Albumin 2.8 L Globulin 3.2 Albumin/Globulin Ratio 0.9 S.aureus Protein A PCR NEGATIVE MRSA (PCR) Negative Medical Necessity - Tobacco Use Smoking Status: Current every day smoker Assessment/Plan All Active Problems Abscess of right thumb (Acute) Puncture wound of right thumb (Acute) Fish hook injury of right thumb (Acute) No significant past medical history (Acute) Flexor tenosynovitis of thumb (Acute) 1. Puncture wound infection volar surface right thumb at IP joint. 2. Flexor tenosynovitis. 3. Fish hook injury. 4. Smoker. 5. s/p surgical preparation right thumb with incision and drainage and excisional debridement necrotizing infection abscess and incision and drainage tendon sheath for flexor tenosynovitis. Wounds are stable. Less redness seen. Swelling slowly resolving. No further evidence of infection. Silver dressing changes done today with some pain that needed IV analgesia. Operative culture thus far shows Gram negative lucero. Continue IV Vancomycin and Zosyn. MRSA Wound DNA by PCR was negative. Encourage nutritional supplementation with protein to help with the healing process. Continue thumb spica splint and hand elevation. Will discharge home when tolerating po analgesia. Until family feels comfortable with dressing changes, will have him come to the office 3 times per week for Silver dressing changes. After discharge will followup with OT for a silastic splint and range of motion exercises, strengthening, and edema management. Encouraged patient to stop smoking as it may have deleterious effects on wound healing.
[2018-10-30 13:15] VITALS: BP 134/94; PULSE 68; RESP 16; TEMP 37; O2SAT 98
--- NOTE | 2018-10-30 13:38 | CASEMGMT ---
Social Work Note SW attempted to speak with pt regarding self-pay and to follow up from SW previous conversation with pt. Pt soundly sleeping and didn't awake when this worker entered the room. SW will follow up with pt as time allows. Krystyna Parr LACE WEAVER, GENERAL PEDIATRICIAN
[2018-10-30] MEDS: 0.9% Normal Saline 1,000 ML 100 ML IV (13:56)
--- NOTE | 2018-10-30 14:00 | NURSING ---
wound photo: right thumb
[2018-10-30] MEDS: diazePAM 5 MG Tablet PO (14:06)
[2018-10-30] MEDS: Docusate Sodium 100 MG Capsule PO ×2 (17:10→22:20)
--- NOTE | 2018-10-30 17:37 | CHAPLAIN ---
Type of Pastoral Visit _x__ Initial Visit ___ Follow-up Visit ___ On-call Visit ___ General Patient Visit ___ Spiritual Assessment ___ Family Conference ___ Bereavement ___ Rapid Response ___ Code Blue ___ Other (describe below) Pastoral Care Referral From _x__ Patient ___ Family ___ Nurse ___ Physician ___ Men'S Golf Coach ___ Aviculturist ___ Other (describe below) Sacrament/Intervention _x__ Active listening ___ Anointing ___ Denominational ___ Bereavement ___ Communion _x__ Ermelinda exploration ___ _x__ Life review _x__ Prayer ___ Reconciliation ___ Sacrament of Sick _x__ Supportive presence ___ Wedding ___ Other (describe below) Pastoral Comments patient requests spiritual care and prayer along with some inspirational reading material; pt is talkative about his life and some concerns about his spiritual and family life; pt states he forgot to bring his medallion of favorite saint and requests something to hold while he is in hospital; a new taoism object retrieved and given to patient as requested; pt requests more visits of banquet server during his admission
[2018-10-30 20:27] VITALS: BP 149/104; PULSE 86; RESP 16; TEMP 36.8; O2SAT 99
[2018-10-31] MEDS: 0.9% Normal Saline 1,000 ML 100 ML IV ×2 (01:38→12:00)
[2018-10-31 02:27] LABS: Hematocrit 39.7 % (40-54); Hemoglobin 13.2 g/dL (13.0-16.5); Mean Corp Hgb Conc 33.2 g/dL (32-36); Mean Corpuscular Hgb 32.1 pg (27.0-32.0); Mean Corpuscular Volume 96.6 fL (80-94); Platelet Count 231 K/mm3 (150-450); RBC Distribution Width CV 12.8 % (11.6-14.6); Red Blood Count 4.11 M/mm3 (4.6-6.2); White Blood Count 5.7 K/mm3 (4.4-11.0)
[2018-10-31 02:48] LABS: Vancomycin, Trough Level 14.6 ug/mL (5.0-15.0)
[2018-10-31] MEDS: Vancomycin IV 1,000 MG/200 ML BAG 200 MG IV (03:10)
[2018-10-31 03:15] VITALS: BP 144/88; PULSE 83; RESP 18; TEMP 37.1; O2SAT 97
--- NOTE | 2018-10-31 03:26 | PCM.RX.CS ---
Consult Pharmacy has been consulted to manage selected antiobiotic: Vancomycin Type of Consult: Follow-up Suspected Infection: Skin/Soft tissue Prior Doses of Antibiotics Received/Current Regimen: Medications Vancomycin HCl (Vancomycin) 1,000 mg in 200 mls @ 200 mls/hr IV Q12H VICENTE Last Admin: 10/31/18 03:10 Dose: 200 mls/hr Labs: Vancomycin Trough 14.6 ug/mL (5.0-15.0) 10/31/18 02:15 Microbiology: Microbiology 10/29/18 15:56 Wound - Right Hand Gram Stain - Final 10/29/18 15:56 Wound - Right Hand Wound Culture - Preliminary Gram negative lucero Weight used for dosin kg Estimated Creatinine Clearance: 82 Goal Trough: 10-15 mcg/mL Pharmacy Plan for Drug Dosing: Vancomycin trough level of 14.6 was received, within the target range of 10-15. Due to the previous dose being given late the trough represented only a roughly 9 hour level, so will re-draw a trough in 4 doses to re-check. Pharmacy Service will continue to monitor and adjust dosing as required. Follow-Up Labs: Trough Vancomycin Labs to be done on [date and time ordered]: 11/01/18 @9712
[2018-10-31] MEDS: HYDROmorphone 2 MG TABLET PO ×2 (03:36→11:09)
[2018-10-31 04:12] LABS: Anion Gap 7 (5-15); BUN 12 mg/dL (7-18); BUN/Creat Ratio 12.4 RATIO (10-20); Chloride 108 mmol/L (98-107); Creatinine, Serum 0.96 mg/dL (0.70-1.30); EST Glomerular Filtration Rate 87 mL/min (>60); Est Glom Filt Rate - Afr Amer 105 mL/min (>60); Estimated Creatinine Clearance 91.03 ml/min; Glucose 133 mg/dL (74-106); Potassium 4.9 mmol/L (3.5-5.1); Prealbumin 15.2 mg/dL (20.0-40.0); Sodium Level 139 mmol/L (136-145)
[2018-10-31 08:10] VITALS: BP 136/82; PULSE 87; RESP 16; TEMP 37; O2SAT 95
[2018-10-31] MEDS: Gabapentin 300 MG Capsule PO (08:19)
[2018-10-31] MEDS: Docusate Sodium 100 MG Capsule PO (08:20)
[2018-10-31] MEDS: diazePAM 5 MG Tablet PO (10:20)
[2018-10-31] MEDS: HYDROmorphone 0.5 MG/0.5 ML SYRINGE IV (12:00)
--- NOTE | 2018-10-31 12:54 | CASEMGMT ---
Addendum entered by Ro Leslie 10/31/18 13:11: SW spoke w/pt, let him know that he does have Medicare part A, which will cover the hospital stay. SW explained to pt that he may not have prescription coverage however, and he does not have coverage for doctor visits. Pt states understanding of this. SW encouraged pt to call Medicaid to see if he may qualify for it and then he may be able to get doctor visit coverage and medication coverage. SW gave pt a Medicaid application with the phone number to call to apply for Medicaid. Pt states understanding. TIMMY Campoverde Original Note: SW spoke w/pt in the room in regard to pt's insurance. SW explained to pt that the SW called and pt's [facility] Medicaid is not active. Pt states he does not have Medicaid, he had Medicare, states he got it through the Social Security Board when he was diagnosed with hepatitis C. Pt states is no longer on disability but still has Medicare. Pt states it also has covered his prescriptions, and asked how that could be if he does not have insurance. SW inquired the last time he got a prescription covered, he states a year or two ago. SW explained will call our financial dept and have them check for Medicare. SW spoke w/our financial dept, spoke w/Kelsie. She found that pt does have Medicare, part A only. She will find the numbers and put them into the computer system. SW will let pt know, he is in with the physician at present. TIMMY Campoverde
--- NOTE | 2018-10-31 14:10 | PN.SURG_ITS ---
Subjective: Postop #2 Patient states his pain is more tolerable. Tolerated the Silver dressing change reasonably well. - Physical Exam General: Alert, Oriented x3 HEENT: PERRLA, EOMI Oral: Moist Mucosa Neck: Supple Abdomen: Soft, Non-Distended Extremities: Edema - mild edema right hand., Peripheral Pulses Normal Skin: Ulcer/ Wound - right thumb wound is stable. No further evidence of infection noted. Swelling resolving. Redness resolving. Tenderness improving. Silver dressing changes was still painful but tolerated it well. Lymphatic: - - no axillary adenopathy. Neurological: Cranial nerves II-XII grossly intact Psych/Mental Status: Normal Affect, Appropriate Vital Signs Temp Pulse Resp BP Pulse Ox 98.6 F 87 16 136/82 H 95 10/31/18 08:10 10/31/18 08:10 10/31/18 08:10 10/31/18 08:10 10/31/18 08:10 Oxygen Delivery Method Room Air Weight: 170 lb 3.15 oz Body Mass Index (BMI) 25.1 Intake and Output for Last 24 Hours 10/29/18 10/30/18 10/31/18 23:59 23:59 23:59 Intake Total 2954 / 2954 2012.59 / 3163.59 3661.67 / 3661.67 Output Total 850 / 850 Balance 2954 / 2954 2012.59 / 3163.59 2811.67 / 2811.67 Microbiology Past 72 Hours 10/29/18 15:56 Gram Stain - Final Wound - Right Hand Wound Culture - Preliminary Gram negative lucero Laboratory Tests Past 24 Hrs 10/31/18 10/31/18 10/31/18 02:15 02:15 02:15 WBC 5.7 RBC 4.11 L Hgb 13.2 Hct 39.7 L MCV 96.6 H MCH 32.1 H MCHC 33.2 RDW Std Deviation 46.0 H RDW Coeff of Desiree 12.8 Plt Count 231 MPV 10.0 Sodium 139 Potassium 4.9 Chloride 108 H Carbon Dioxide 24.0 Anion Gap 7 BUN 12 Creatinine 0.96 Estim Creat Clear Calc 91.03 Est GFR (MDRD) Af Amer 105 Est GFR (MDRD) Non-Af 87 BUN/Creatinine Ratio 12.4 Glucose 133 H Calcium 8.0 L Prealbumin 15.2 L Vancomycin Trough 14.6 Medical Necessity - Tobacco Use Smoking Status: Current every day smoker Assessment/Plan All Active Problems Abscess of right thumb (Acute) Puncture wound of right thumb (Acute) Fish hook injury of right thumb (Acute) No significant past medical history (Acute) Flexor tenosynovitis of thumb (Acute) 1. Puncture wound infection volar surface right thumb at IP joint. 2. Flexor tenosynovitis. 3. Fish hook injury. 4. Smoker. Wounds are stable. Less redness seen. Swelling resolving. No further evidence of infection. Silver dressing changes done today with some pain but tolerated it well. Patient is anxious to go home. He is tolerating po analgesia. Operative culture thus far shows Gram negative lucero. Will send home on Levaquin. MRSA Wound DNA by PCR was negative. Prealbumin was 15.2. Encourage nutritional supplementation with protein to help with the healing process. Continue thumb spica splint and hand elevation. Discharge home today. Followup this 11/02/18, for a Silver dressing josué buckner. Until family feels comfortable with dressing changes, will have him come to the office 3 times per week for Silver dressing changes. After discharge will followup with OT for a silastic splint and range of motion exercises, strengthening, and edema management. Wrote script for Levaquin for 14 days and 2 refills. Wrote scripts for Percocet for pain (50 tabs) and for Valium for spasm (30 tabs). Wrote script for Neurontin for burning nerve pain (60 tabs) and a refill. Wrote scripts for Phenergan for nausea (30 tabs) and a refill and for Colace for constipation (60 tabs). Encouraged patient to stop smoking as it may have deleterious effects on wound healing.
--- NOTE | 2018-10-31 14:21 | DCINST_ITS ---
- Discharge Diagnoses Current Active Problems: Current Active and Chronic Problems Abscess of right thumb (Acute) Puncture wound of right thumb (Acute) Fish hook injury of right thumb (Acute) Flexor tenosynovitis of thumb (Acute) You will use the following diet at home:: No restrictions, Other - encourage nutritional supplementation with protein to help the healing process. Discharge Activity: May not drive while taking narcotic pain medications., May Shower - wear plastic bag over right hand when showering., - - keep right hand elevated. no heavy lifting right hand. May shower in (days): 1 - wear plastic bag over right hand when showering. May resume sexual activity in: No Restrictions Weight Bearing Status: Weight bearing as tolerated Lifting Restrictions: 20 lbs. Keep extremity elevated above heart level: Right Arm Call your doctor if your incision/area has: Continuous Slow Oozing, Sudden Increased Bleeding, Increased Pain/ Swelling, Increased Redness, Foul Smelling Discharge, Swelling at the incision site Call your doctor if you observe: Fever of 101 or Higher, Coldness, Increased Pain, Shortness of breath, Chest pain, Calf discomfort, Uncontrolled pain Suture Line Care: - - silver dressing changes in the office. Change Dressing in (Days):: 2 - silver dressing change in the office. Cleanse incision/area with: - - wear plastic bag ove right hand when showering. Allergies/Adverse Reactions: Allergies No Known Allergies Allergy (Verified 10/29/18 09:56) Medications to take at Discharge Diazepam [Valium] 5 mg PO 4X/DAY PRN PRN #30 tab 10/31/18 Docusate Sodium [Colace] 100 mg PO BID #60 cap 10/31/18 Gabapentin [Neurontin] 300 mg PO BIDCM #60 cap 10/31/18 Oxycodone HCl/Acetaminophen [Percocet 5/325] 1 - 2 tab PO 4X/DAY PRN PRN 7 Days #50 tab 10/31/18 levoFLOXacin tablet [Levaquin tablet] 750 mg PO DAILY #14 tab 10/31/18 proMETHazine tablet [Phenergan tablet] 25 mg PO 4X/DAY PRN PRN #30 tab 10/31/18 The following prescriptions were given: Docusate Sodium [Colace] 100 mg PO BID #60 cap Prescription Printed levoFLOXacin tablet [Levaquin tablet] 750 mg PO DAILY #14 tab Prescription Printed Gabapentin [Neurontin] 300 mg PO BIDCM #60 cap Prescription Printed Oxycodone HCl/Acetaminophen [Percocet 5/325] 1 - 2 tab PO 4X/DAY PRN PRN 7 Days #50 tab PRN Reason: Pain Prescription Printed proMETHazine tablet [Phenergan tablet] 25 mg PO 4X/DAY PRN PRN #30 tab PRN Reason: Nausea/Vomiting Prescription Printed Diazepam [Valium] 5 mg PO 4X/DAY PRN PRN #30 tab PRN Reason: Spasms Prescription Printed Primary Care Physician: Care Physician,No Primary [Primary Care Provider] - Test Results: Test results from this visit will be discussed in further detail at your follow- up appointment, if applicable. Please Follow Up With: Ellis Tejada MD When: monday11/02/18 at 1030am. call [phone] if any questions. Proposed Discharge Date: 10/31/18
--- NOTE | 2018-10-31 14:39 | CHAPLAIN ---
Type of Pastoral Visit ___ Initial Visit _x__ Follow-up Visit ___ On-call Visit ___ General Patient Visit ___ Spiritual Assessment ___ Family Conference ___ Bereavement ___ Rapid Response ___ Code Blue ___ Other (describe below) Pastoral Care Referral From _x__ Patient ___ Family ___ Nurse ___ Physician ___ Banquet Server On Call ___ Wheat Shipper ___ Other (describe below) Sacrament/Intervention _x__ Active listening ___ Anointing ___ Temple ___ Bereavement ___ Communion _x__ Ermelinda exploration ___ ___ Life review _x__ Prayer ___ Reconciliation ___ Sacrament of Sick _x__ Supportive presence ___ Wedding ___ Other (describe below) Pastoral Comments returned to visit today at patient's request and found him sitting up in chair and expressing great hira in news of discharge and freedom from pain; pt is expressive of thanks for spiritual support and prayers; pt desires more prayers
[2018-10-31 15:05] VITALS: BP 158/94; PULSE 87; RESP 16; TEMP 37.1; O2SAT 98
--- NOTE | 2018-10-31 16:35 | NURSING ---
upon discharge, pt states that his wallet is locked in the bottom med superintendent track room. unlocked and given pt wallet, he counts the money in his wallet and reports that $20 is missing. according to patient, upon admission, he had $180 in his wallet. he kept $20 which he put in his shorts pocket in case I needed something from the vending machines. this was also reported missing. this RN checked shorts and other personal belongings, no ugarte was found. pt admits that it is possible that the money in his shorts might have fallen out and gotten lost as he was wearing them during his stay. but when counting the money in his wallet, he reports only $140. this RN and charge master coordinator verified that there was $140 in his wallet at time of discharge. community chest officer was notified and pt informed that the staff would look into the issue.
--- NOTE | 2018-10-31 20:14 | DS.PCM_ITS ---
Discharge Date and Diagnosis Date of Admission: 10/29/18 Date of Discharge: 10/31/18 - Primary Discharge Diagnosis Puncture wound necrotizing infection abscess volar surface right thumb at IP joint. Flexor tenosynovitis. Fish hook injury. - Secondary Discharge Diagnosis Smoker Hospital Course and Treatment Imaging Results: Finger X-Ray 10/29/18 11:23 IMPRESSION: No acute abnormality is seen. Electronically Signed: Billy Gonzalez, at 12:20 EDT , Service support , CONSULTATIONS Wound ostomy. Operations: - - Surgery 10/29/18 - 1. Surgical preparation right thumb with incision and drainage and excisional debridement necrotizing infection abscess. 2. Incision and drainage tendon sheath for flexor tenosynovitis. Procedures: None Summary of Care Provided: Patient is a 53-year-old [id number] male who presents with pain, s welling and discoloration of his right thumb status post puncture wound from a fish hook yesterday. The puncture wound is near the IP joint of the right thumb. He reports increasing redness and pain and swelling since yesterday. He denies fever, chills or night sweats. He came to the ED and was started on IV Clindamycin. X-ray showed no fracture and no foreign body. It was recommended for the patient to be admitted for continued IV antibiotics and urgent operative intervention for incision and drainage and excisional debridement of his worsening infection right thumb. His antibiotics were broadened to Vancomycin and Zosyn. He was taken to surgery the same day of admission and underwent surgical preparation right thumb with incision and drainage and excisional debridement necrotizing infection abscess and incision and drainage tendon sheath for flexor tenosynovitis. He tolerated the procedure well. He continued the Vancomycin and Zosyn after surgery. Operative culture thus far showed Gram negative lucero. Will send home on Levaquin. With further ID and Sensitivity, antibiotic modification may be necessary. MRSA Wound DNA by PCR was negative. On the first postop day, the Silver dressing change was quite painful and he needed IV analgesia. The Silver dressing change on the second postop day was still painful but he tolerated it well. Wounds are stable. Less redness seen. Swelling resolving. No further evidence of infection. Prealbumin was 15.2. Encourage nutritional supplementation with protein to help with the healing process. Continue thumb spica splint and hand elevation. Discharge home on the second postop day. Followup this 11/02/18, for a Silver dressing change. Until family feels comfortable with dressing changes, will have him come to the office 3 times per week for Silver dressing changes. After discharge will followup with OT for a silastic splint and range of motion exercises, strengthening, and edema management. Wrote script for Levaquin for 14 days and 2 refills. Wrote scripts for Percocet for pain (50 tabs) and for Valium for spasm (30 tabs). Wrote script for Neurontin for burning nerve pain (60 tabs) and a refill. Wrote scripts for Phenergan for nausea (30 tabs) and a refill and for Colace for constipation (60 tabs). Encouraged patient to stop smoking as it may have deleterious effects on wound healing. - Physical Exam General: Alert, Oriented x3 HEENT: PERRLA, EOMI Oral: Moist Mucosa Neck: Supple Abdomen: Soft, Non-Distended Extremities: Edema - mild edema right hand., Peripheral Pulses Normal Skin: Ulcer/ Wound - right thumb wound is stable. No further evidence of infection noted. Swelling resolving. Redness resolving. Tenderness improving. Silver dressing change was still painful but tolerated it well. Lymphatic: - - no axillary adenopathy. Neurological: Cranial nerves II-XII grossly intact Psych/Mental Status: Normal Affect, Appropriate Vital Signs Temp Pulse Resp BP Pulse Ox 98.7 F 87 16 158/94 H 98 10/31/18 15:05 10/31/18 15:05 10/31/18 15:05 10/31/18 15:05 10/31/18 15:05 Oxygen Delivery Method Room Air Weight: 170 lb 3.15 oz Body Mass Index (BMI) 25.1 Intake and Output for Last 24 Hours 10/29/18 10/30/18 10/31/18 23:59 23:59 23:59 Intake Total 2954 / 2954 2012.59 / 3163.59 4035.00 / 4035.00 Output Total 850 / 850 Balance 2954 / 2954 2012.59 / 3163.59 3185.00 / 3185.00 Microbiology Past 72 Hours 10/29/18 15:56 Gram Stain - Final Wound - Right Hand Wound Culture - Preliminary Gram negative lucero Laboratory Tests Past 24 Hrs 10/31/18 10/31/18 10/31/18 02:15 02:15 02:15 WBC 5.7 RBC 4.11 L Hgb 13.2 Hct 39.7 L MCV 96.6 H MCH 32.1 H MCHC 33.2 RDW Std Deviation 46.0 H RDW Coeff of Desiree 12.8 Plt Count 231 MPV 10.0 Sodium 139 Potassium 4.9 Chloride 108 H Carbon Dioxide 24.0 Anion Gap 7 BUN 12 Creatinine 0.96 Estim Creat Clear Calc 91.03 Est GFR (MDRD) Af Amer 105 Est GFR (MDRD) Non-Af 87 BUN/Creatinine Ratio 12.4 Glucose 133 H Calcium 8.0 L Prealbumin 15.2 L Vancomycin Trough 14.6 Discharge Diet: No Restrictions, - - encourage nutritional supplementation with protein to help the healing process. Discharge Activity: May not drive while taking narcotic pain medications., May Shower - wear plastic bag over right hand when showering., - - keep right hand elevated. no heavy lifting right hand. May shower in (days): 1 - wear plastic bag over right hand when showering. May resume sexual activity in: No Restrictions Weight Bearing Status: Weight bearing as tolerated Lifting Restrict to (lbs):: 20 Keep extremity elevated above heart level: Right Arm Call your doctor if your incision/area has: Continuous Slow Oozing, Sudden Increased Bleeding, Increased Pain/ Swelling, Increased Redness, Foul Smelling Discharge, Swelling at the incision site Call your doctor if you observe: Fever of 101 or Higher, Coldness, Increased Pain, Shortness of breath, Chest pain, Calf discomfort, Uncontrolled pain Suture Line Care: - - silver dressing changes in the office. Change Dressing in (Days):: 2 - silver dressing change in the office. Cleanse incision/area with: - - wear plastic bag over right hand when showering. Home Medications: Medications to take at Discharge Diazepam [Valium] 5 mg PO 4X/DAY PRN PRN #30 tab 10/31/18 Docusate Sodium [Colace] 100 mg PO BID #60 cap 10/31/18 Gabapentin [Neurontin] 300 mg PO BIDCM #60 cap 10/31/18 Oxycodone HCl/Acetaminophen [Percocet 5/325] 1 - 2 tab PO 4X/DAY PRN PRN 7 Days #50 tab 10/31/18 levoFLOXacin tablet [Levaquin tablet] 750 mg PO DAILY #14 tab 10/31/18 proMETHazine tablet [Phenergan tablet] 25 mg PO 4X/DAY PRN PRN #30 tab 10/31/18 Following Prescrptions Were Given to Patient: Docusate Sodium [Colace] 100 mg PO BID #60 cap Prescription Printed levoFLOXacin tablet [Levaquin tablet] 750 mg PO DAILY #14 tab Prescription Printed Gabapentin [Neurontin] 300 mg PO BIDCM #60 cap Prescription Printed Oxycodone HCl/Acetaminophen [Percocet 5/325] 1 - 2 tab PO 4X/DAY PRN PRN 7 Days #50 tab PRN Reason: Pain Prescription Printed proMETHazine tablet [Phenergan tablet] 25 mg PO 4X/DAY PRN PRN #30 tab PRN Reason: Nausea/Vomiting Prescription Printed Diazepam [Valium] 5 mg PO 4X/DAY PRN PRN #30 tab PRN Reason: Spasms Prescription Printed Primary Care Physician: Care Physician,No Primary [Primary Care Provider] - Please Follow Up With: Ellis Tejada MD When: monday11/02/18 at 1030am. call [phone] if any questions. Disposition: Home Minutes spent on discharge:: 30 Patient Condition:: Fair Medical Necessity - Tobacco Use Smoking Status: Current every day smoker Meaningful Use Info Meaningful Use Diagnoses (Choose all that apply): None applicable
== END 2018-10-31 15:08 | disposition home or self-care (01) | DRG 513 ==
LOC: ED 11:39 → MS3 13:06
PROVIDERS: Admitting Provider Surgery; Emergency Provider Emergency Medicine; Visit Provider Surgery
PROC: 0JBJ0ZZ Excision of Right Hand Subcutaneous Tissue and Fascia, Open Approach (ICD-10-PCS; principal; 2018-10-29 14:05)
DX: M65.841 Other synovitis and tenosynovitis, right hand (principal); L02.511 Cutaneous abscess of right hand; F17.200 Nicotine dependence, unspecified, uncomplicated; S61.031A Puncture wound without foreign body of right thumb without damage to nail, initial encounter; W26.8XXA Contact with other sharp object(s), not elsewhere classified, initial encounter; B96.89 Other specified bacterial agents as the cause of diseases classified elsewhere
CPT/HCPCS: 36415; 73140; 80048; 80053; 80202; 84134; 85025; 85027; 85652; 86140; 87015; 87070; 87075; 87077; 87102; 87116; 87186; 87205; 87206; 87640; 88305; 88312; 99284; 99406; J7030; J7050; J7120; A4216; J2405

== ENCOUNTER 2018-11-05 08:17 | Outpatient (RCR) | payer SELFPAY ==
[2018-11-02 11:01] VITALS: BMI 25.1
== END 2018-11-05 19:00 | disposition home or self-care (01) ==
LOC: OT 08:17
PROVIDERS: Referring Provider Surgery; Visit Provider Surgery
DX: S69.91XD Unspecified injury of right wrist, hand and finger(s), subsequent encounter (principal); S61.031D Puncture wound without foreign body of right thumb without damage to nail, subsequent encounter; L02.511 Cutaneous abscess of right hand; M65.9 Synovitis and tenosynovitis, unspecified